=== PATIENT | female | born 1935 | race Caucasian/White ===

== ENCOUNTER 2020-02-20 20:30 | Emergency (ER) | payer MEDICARE, MEDICAID ==
[~2020-02-20] VITALS: Ht 165.1 cm; Wt 45.4 kg
[2020-02-20 20:56] VITALS: BP 115/50
[2020-02-20 21:10] VITALS: BP 115/50
--- NOTE | 2020-02-20 21:16 | NUR ---
ARRIVAL NOTE PATIENT HERE TODAY FOR ANURIA. PATIENT WAS SEEN LAST NIGHT AT [facility] FOR SAME ISSUE. FAMILY STATES PATIENT HAD BLADDER STIMULATER IMPLANTED AND HAS NOT BEEN ABLE TO URINATE. FAMILY STATED THAT PATIENT HAD STRAIGHT CATH PERFORMED AT [facility] TO DRAIN BLADDER AND WERE INSTRUCTED TO OBTAIN SUPPLIES TO PERFORM THIS PROCEDURE AT HOME. PATIENT DENIES ANY PAIN, VITAL SIGNS GOOD, AFEBRILE. PATIENT RESTIN IN POSITION OF COMFORT AT THIS TIME.
[2020-02-20 22:58] VITALS: BP 115/57
--- NOTE | 2020-02-20 23:57 | ER.PDOC ---
General Chief Complaint: Female Urogenital Problems Stated Complaint: FEMALE Time seen by MD: 23:05 Source: patient, family (daughter by phone via nurse) Exam Limitations: no limitations History of Present Illness Initial Comments Pt was seen yesterday at [facility] for urinary retention, needed straight cath adn was told not to place walsh due to uterine prolapse. No fever, was told urine was not infected. Today has not urinated since this morning and daughter was concerned. Pt denies having pain or urgency like she had yesterday. Denies complaints. Associated Symptoms: denies symptoms Prior symptoms/Treatment: Recenly Seen Past Medical History Medical History: hypertension Surgical History: other Family History Significant Family History: no pertinent family hx Social History Alcohol Use: rarely Drug Use: none Review of Systems Constitutional: no symptoms reported; denies chills, denies fever Respiratory: no symptoms reported; denies cough, denies shortness of breath Cardiovascular: no symptoms reported; denies chest pain Genitourinary: see HPI; denies burning, denies dysuria, denies frequency, denies hematuria, denies urgency; other (decreased urination today) Musculoskeletal: no symptoms reported Skin: no symptoms reported All Other Systems: Reviewed and Negative Physical Exam General Appearance: No Apparent Distress EENT: eyes nml inspection, nml ENT inspection Abdomen: Normal Bowel Sounds, Non Tender, Soft, No Organomegaly, No Pulsatile Mass Back: nml inspection Extremities: Normal Range of Motion, Non-Tender Neurologic/Psychiatric: No Motor/Sensory Deficits, Alert Skin: Normal Color, Warm/Dry Results/Orders Results/Orders Orders - SHIRLEY VERA DO Urinalysis (02/20/20 21:51) Straight Cath (02/20/20 21:51) Vital Signs Date Time Temp Pulse Resp B/P (MAP) Pulse Ox O2 Delivery O2 Flow Rate FiO2 02/20/20 22:58 98.0 55 18 115/57 (76) 97 Room Air 02/20/20 21:10 98.0 59 18 115/50 (71) 99 Room Air 02/20/20 20:56 98.0 59 18 02/20/20 20:56 98.0 59 18 99 Progress Progress Pt found to have not taken in much fluid today, and on straight cath there was m inimal urine found. Family was concerned about urinary retention, but pt denies having these symtoms tonight. I gave option of staying in ER until she urinated, but pt and her daughter declined. Since she was seen yesterday and evaluated for urinary retention, no further workup done at this point. Pt declined further testing as did her daughter who brought her. Departure Time of Disposition: 00:04 Disposition: 01 HOME, SELF-CARE Impression: Primary Impression: Decreased urination Condition: Stable Referrals: MARGIE MONTES MD (PCP) PRIMARY CARE PROVIDER Duration or Time Spent with Pa: 15 SHIRLEY VERA DO Feb 20, 2020 23:57
== END 2020-02-21 00:28 | disposition home or self-care (01) ==
LOC: ER 20:30
DX: R33.9 Retention of urine, unspecified (principal); I10 Essential (primary) hypertension
CPT/HCPCS: 51702; 99284

== ENCOUNTER 2020-04-14 17:34 | Emergency (ER) | payer MEDICARE, MEDICAID ==
[~2020-04-14] VITALS: Ht 152.4 cm; Wt 49.9 kg
[2020-04-14 18:30] VITALS: BP 159/110
[2020-04-14] MEDS ORDERED: NITROSTAT SL STA (18:47)
[2020-04-14] MEDS ORDERED: GLUCAGEN IM STA (18:47)
--- NOTE | 2020-04-14 19:33 | NUR ---
PO CHALLENGE PT GIVEN LARGE GLASS OF WATER TO DETERMINE IF SHE CAN KEEP IT DOWN.
--- NOTE | 2020-04-14 19:36 | ER.PDOC ---
General Chief Complaint: General Complaint Stated Complaint: FORIEGN OBJ TRAVEL OUT OF US: No Time seen by MD: 19:17 Source: patient, family Exam Limitations: no limitations History of Present Illness Initial Comments Pt feels like some food got stuck in lower esophagus at lunchtime. Has a vague FB sensation just above her diaphragm. Has not vomited. Tolerating her own saliva. Happened after swallowing piece of steak. Past Medical History Medical History: no pertinent history Surgical History: no surgical history Family History Significant Family History: no pertinent family hx Social History Alcohol Use: occassionally Drug Use: none Review of Systems Constitutional: denies chills, denies fever EENTM: no symptoms reported Respiratory: no symptoms reported Cardiovascular: no symptoms reported Gastrointestinal: see HPI; denies abdominal pain Musculoskeletal: no symptoms reported Skin: no symptoms reported Psychiatric/Neurological: no symptoms reported Hematologic/Lymphatic: no symptoms reported All Other Systems: Reviewed and Negative Physical Exam General Appearance: No Apparent Distress EENT: nml ENT inspection Neck: Non-Tender Respiratory: chest non-tender, lungs clear, normal breath sounds CVS: reg rate & rhythm, no murmur Gastrointestinal: Normal Bowel Sounds, No Pulsatile Mass, Non Tender Rectal: Deferred Extremities: Normal Range of Motion Neurologic/Psychiatric: Alert, Oriented x 3 Results/Orders Results/Orders Orders - SHIRLEY VERA DO Xr Chest 2v (04/14/20 18:47) Nitroglycerin (Nitrostat) (04/14/20 18:47) Glucagon,Human Recombinant (Glucagen) (04/14/20 18:47) Vital Signs Date Time Temp Pulse Resp B/P (MAP) Pulse Ox O2 Delivery O2 Flow Rate FiO2 04/14/20 18:30 98.1 68 18 92 Room Air 04/14/20 18:30 98.1 68 18 04/14/20 18:30 98.1 68 18 92 Progress Progress Pt without any vomiting and is tolerating own saliva. No indication for emergent scope. Pt given PO fluids here, tolerated without vomiting. Likely has abrasion, possibly small piece of food, but NOT obstructive. Rx pepcid Departure Time of Disposition: 19:35 Disposition: 01 HOME, SELF-CARE Impression: Primary Impression: Esophageal abrasion Condition: Stable Referrals: NANDO RUBI MD (PCP) PRIMARY CARE PROVIDER Duration or Time Spent with Pa: 15 Problem Qualifiers Primary Impression: Esophageal abrasion Encounter type: initial encounter Qualified Codes: S27.818A - Other injury of esophagus (thoracic part), initial encounter SHIRLEY VERA DO Apr 14, 2020 19:36
--- NOTE | 2020-04-14 19:51 | DIREP ---
PROCEDURE:CHEST 2 VIEWS COMPARISON:None. INDICATIONS:esophageal FB (food bolus) FINDINGS: LUNGS/PLEURA:Chronic bilateral interstitial changes. No acute airspace disease No effusions. VASCULATURE:Normal. Unremarkable pulmonary vasculature. CARDIAC:Normal. No cardiac silhouette abnormality or cardiomegaly. MEDIASTINUM:Normal. No visible mass or adenopathy. BONES:Normal. No fracture or visible bony lesion. OTHER:Negative. CONCLUSION:Chronic interstitial changes bilateral lungs. No acute airspace disease Dictated by: Obed Esteves DO on 04/14/2020 at 07:49 PM
== END 2020-04-14 19:50 | disposition home or self-care (01) ==
LOC: ER 17:34
DX: S27.818A Other injury of esophagus (thoracic part), initial encounter (principal); X58.XXXA Exposure to other specified factors, initial encounter; Y93.89 Activity, other specified; Y92.89 Other specified places as the place of occurrence of the external cause; Y99.8 Other external cause status
CPT/HCPCS: 71046; 99283